=== PATIENT | female | born 2000 | race Caucasian/White ===

== ENCOUNTER 2020-06-01 00:45 | Inpatient (IN) | payer OTHER ==
[2020-06-01] VITALS (17 sets, daily range): BP systolic 105–146; BP diastolic 62–81
[~2020-06-01] VITALS: Ht 157.5 cm; Wt 93.0 kg
--- NOTE | ~2020-06-01 | CON ---
[address] [address] CONSULTATION Name: JOVANNY MEJIA I Room: [address] IN M.R.#: [id number] Admission: 06/01/20 Attend Phys: Cleveland Haskins, Discharge: Date of : 00 Report #: [id number] THIS REPORT FOR: //name// cc: Elvi Lim Michelle RNP ~ THIS REPORT FOR: //name// CC: Elvi Haskins DATE OF SERVICE: 06/01/2020 INDICATION FOR CONSULTATION: Ventilator management. REQUESTING PHYSICIAN: Dr. Valles. HISTORY OF PRESENT ILLNESS: A 19-year-old female with past medical history does include a history of smoking as well as vaping and marijuana use. The patient is now admitted with drug overdosage. She had ingested 100 tablets of Benadryl with suicidal intent. The patient subsequently did also have significant vomiting and there is suspicion that she may have aspirated. The patient required endotracheal intubation secondary to acute respiratory failure, on initial presentation. Initially she is also reported to have had a prolonged QT interval. The patient has had significant pink frothy secretions suctioned out from her ET tube. The patient is currently sedated with propofol as well as Versed infusions. On the monitor she currently appears to have a normal sinus rhythm with mild tachycardia. The patient is on the ventilator and unable to provide a further history or review of systems. PAST MEDICAL HISTORY: There is no known past medical history. SOCIAL HISTORY: The patient has a previous history of smoking and is reported to have now discontinued and started vaping. Also history of marijuana use. There is no known history of heavy alcohol use. There is no known history of any other street drug use. ALLERGIES: No known drug allergies. FAMILY HISTORY: There is no pertinent family history known at this time. CURRENT MEDICATIONS: In [facility] reviewed. HOME MEDICATIONS: Unknown. PHYSICAL EXAMINATION: GENERAL: She is sedated with propofol [place] [address] CONSULTATION Name: JOVANNY MEJIA I Room: [address] IN [facility].#: [id number] Admission: 06/01/20 Attend Phys: Cleveland Haskins, Discharge: Date of : 00 Report #: [id number] VITAL SIGNS: Has a pulse of 106 and a blood pressure of 105/62. She is saturating 100%. She is on assist control mode of ventilation with 40% FiO2. Her ventilator settings are reviewed. She is ventilating and oxygenating adequately. Initially, there was an air leak from around the ET tube. I did advance it by 1 cm and inflated the cuff more, this has now resolved. She has a pulse of 106, respiratory rate 19. She is overbreathing the ventilator. Blood pressure 105/62, O2 saturation 100%, afebrile now with a temperature of 36.9, mild elevation in temperature to 37.3 earlier. HEENT: Head is normocephalic and atraumatic. Pupils are mildly dilated, poorly reactive, bilaterally equal. Endotracheal tube as discussed. NECK: Does not show raised JVP, asymmetry, mass or lymph nodes. CHEST: Symmetrical expansion on inspection and palpation. On auscultation, chest is clear. HEART: Regular. There is mild tachycardia. There is no murmur. ABDOMEN: Soft and nontender. EXTREMITIES: Lower extremities show no edema, no calf tenderness. SKIN: Dry and intact. NEUROLOGICAL: Moves all extremities bilaterally equally and spontaneously with no focal deficit identified. LABORATORY DATA: The patient's chest x-ray is reviewed, does not show any large infiltrates. There is no increase in pulmonary vascular congestion. Endotracheal tube position is verified 3 times by x-rays initially. Right mainstem we have adjusted it twice since. The patient did initially have a metabolic acidosis. Repeat labs this morning are [facility] and are reviewed, the patient's bicarbonate is trending upwards. Potassium is now within the normal range. Magnesium is towards the lower limit of normal range. ASSESSMENT/PLAN: 1. Acute respiratory failure secondary to drug overdosage. I will keep her on the ventilator today. We will attempt to take her off the ventilator tomorrow morning. Note, that initially she did have a prolonged QT interval. She is currently on a propofol as well as Versed infusion. Propofol possibly could prolong QT, though she appears to be stable on current therapy. Therefore, I did not make any major change,as reduction in propofol will require increase in Versed or use of an alternate agent. We can give her p.r.n. fentanyl. I would like to repeat a central venous blood gas now and then we will readjust the ventilator. 2. Drug overdosage. See discussion above. The Poison Control has already been in touch as well. 3. Suicidal attempt. See discussion above. We will need a sitter whenever extubated. 4. Vomiting/aspiration. Cultures obtained and Zosyn ordered. There was suspicion of a mediastinal mass on the chest x-ray. I do not see any definite mass but I feel this is reasonable to evaluate this further. CT chest, which is already ordered by the primary service. This will also evaluate for presence or [facility] [address] [place] [address] CONSULTATION Name: JOVANNY MEJIA I Room: [address] IN [facility]#: [id number] Admission: 06/01/20 Attend Phys: Cleveland Haskins, Discharge: Date of : 00 Report #: [id number] otherwise of infiltrates. 5. Deep venous thrombosis prophylaxis. We will watch ET tube secretions. If they remain hemorrhagic then I may consider holding off on Lovenox. Otherwise, the plan is to start prophylactic dose Lovenox at bedtime. 6. History of smoking/vaping/marijuana use. 7. Fluid and electrolytes. She appears to be mildly fluid overloaded. She has IV fluids running at 100. She appears to be tolerating these well. I will continue IV fluids, I will be inclined to cut back soon. Thanks for this consultation. By: [id number] Gonzalez MD /nt
[2020-06-01 01:29] LABS: BE -6.3 mmol/L (-2 to +3); PCO2 28.6 mmHg (35.0-45.0); PO2 93.2 mmHg (75.0-100.0); pH 7.395 (7.340-7.450)
[2020-06-01 01:35] LABS: HEMATOCRIT 37.8 % (37.0-47.0); HEMOGLOBIN 12.8 gm/dL (12.0-15.0); MCHC 33.8 g/dL (28.0-37.0); MCV 76.8 fL (80.0-100.0); MPV 9.4 fl. (7.2-11.1); RBC 4.92 mil/uL (4.20-5.00); RDW-CV 15.3 % (10.5-14.5); WBC 13.9 thou/uL (4.0-11.0)
[2020-06-01 01:47] LABS: ALBUMIN 3.5 g/dL (3.4-5.0); CALCIUM 8.1 mg/dL (8.5-10.1); CREATININE 0.8 mg/dL (0.6-1.3); TOTAL BILIRUBIN 0.1 mg/dL (<0.1-1.0); TOTAL PROTEIN 8.3 g/dL (6.4-8.2)
[2020-06-01 01:48] LABS: POTASSIUM 2.7 mmol/L (3.5-5.1)
[2020-06-01 01:55] LABS: ALCOHOL < 10 mg/dL (<10); SALICYLATE < 2.8 mg/dL (2.8-20.0)
[2020-06-01 01:57] LABS: ACETAMINOPHEN < 2 ug/mL (10-30)
[2020-06-01 02:42] LABS: URINE BILIRUBIN NEGATIVE (Negative); URINE BLOOD NEGATIVE (Negative); URINE CLARITY CLEAR; URINE COLOR YELLOW; URINE GLUCOSE-RANDOM NEGATIVE (Negative); URINE KETONES NEGATIVE (Negative); URINE LEUKOCYTES NEGATIVE (Negative); URINE NITRITE NEGATIVE (Negative); URINE PROTEIN NEGATIVE (Negative); URINE UROBILINOGEN 0.2 E.U./dl (0.2-1.0)
[2020-06-01 02:49] LABS: AMP/METHAMP Negative (Negative); BARBITURATES Negative (Negative); BENZODIAZEPINES Negative (Negative); COCAINE Negative (Negative); METHADONE Negative (Negative); OPIATES Negative (Negative); PCP Negative (Negative); THC POSITIVE (Negative)
--- NOTE | 2020-06-01 08:24 | EKG ---
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 : [id number] Requested By: Nolvia Valles Order Number: [id number] MD: Junior Yost Measurements Intervals [place] Rate: 159 P: 40 [place]: 58 QRS: -24 QRSD: 102 T: 34 QT: 356 QTc: 580 Interpretive Statements Sinus tachycardia Consider right atrial enlargement Borderline left axis deviation Borderline Q waves in lateral leads Prolonged QT interval No previous ECG available for comparison Electronically Signed On 06-01-2020 8:24:41 CDT by Junior Yost [email or web address] <ELECTRONICALLY SIGNED> By: Junior Yost MD, [facility] 06/01/20 0824 0056 Junior Yost MD, [facility] /EPI
[2020-06-01 10:54] LABS: CALCIUM 7.6 mg/dL (8.5-10.1); CREATININE 0.6 mg/dL (0.6-1.3); MAGNESIUM 1.8 mg/dL (1.8-2.4); PHOSPHORUS* 3.5 mg/dL (2.5-4.9); POTASSIUM 3.9 mmol/L (3.5-5.1)
[2020-06-01 12:53] LABS: APTT 24.6 Seconds (25.0-31.3); PROTIME 10.7 Seconds (9.20-11.50)
[2020-06-01 13:04] LABS: BE -4.8 mmol/L (-2 to +3); PO2 VENOUS 143.6 mmHg (35.0-45.0)
[2020-06-01] MEDS ORDERED: ENOXAPARIN40 MG/0.1 SUBQ (13:48)
[2020-06-01] MEDS ORDERED: NEXIUM40 MG PER TUBE (13:48)
[2020-06-01] MEDS ORDERED: [UNRECOGNIZED DRUG - OTHER] IV (13:48)
[2020-06-01] MEDS ORDERED: ALBUTEROL2.5 MG/0.5 INH (13:48)
[2020-06-01] MEDS ORDERED: ZOSYN 3.373.375 GM/1 IV (13:48)
--- NOTE | 2020-06-01 16:47 | EKG ---
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
== END 2020-06-01 15:20 | disposition short-term general hospital (02) | DRG 917 ==
LOC: M.ERS 00:45 → EDBD 05:27 → M.ICU 05:27 → M.TBA-ER 05:27 → M.ICU 09:07
PROVIDERS: Internal Medicine; Internal Medicine Critical Care Medicine; Personal Emergency Response Attendant; ADMIT Family Medicine; ATTEND Family Medicine
PROC: 02HV33Z Insertion of Infusion Device into Superior Vena Cava, Percutaneous Approach (ICD-10-PCS; principal; 2020-06-01)
DX: T45.0X2A Poisoning by antiallergic and antiemetic drugs, intentional self-harm, initial encounter (principal); J96.01 Acute respiratory failure with hypoxia; G92 Toxic encephalopathy; J69.0 Pneumonitis due to inhalation of food and vomit; T14.91XA Suicide attempt, initial encounter; Z20.828 Contact with and (suspected) exposure to other viral communicable diseases; Y92.89 Other specified places as the place of occurrence of the external cause; Z79.899 Other long term (current) drug therapy